=== PATIENT | female | born 1950 | race Caucasian/White ===

== ENCOUNTER 2016-10-30 05:54 | Inpatient (IN) ==
[2016-10-27 08:53] LABS: Hematocrit 30.7 VOL% (35.7-47.0); Hemoglobin 9.5 GM/DL (12.0-16.0); Immature Granulocytes % 0.4 %; Immature Granulocytes Absolute 0.01 #; Lymphocytes # 0.7 10*3/uL (1.4-4.0); Lymphocytes % 28.8 % (21.3-54.2); Mean Corpuscular HGB Conc 30.9 GM/DL (32-36); Mean Corpuscular Hemoglobin 25 PG (27-34); Mean Corpuscular Volume 79.7 FL (87-102); Monocytes # 0.2 10*3/uL (0.11-0.8); Monocytes % 9.7 % (1.7-12.7); Neutrophils # 1.4 10*3/uL (1.4-7.4); Neutrophils % 61.1 % (38.7-73.9); Red Blood Count 3.85 MC/CUMM (3.8-5.5); Red Cell Distribution Width 14.7 % (9.3-17.3); White Blood Count 2.4 T/CUMM (4-12)
[2016-10-27 08:56] LABS: Platelet Count 103 T/CUMM (130-400)
--- NOTE | 2016-10-27 09:02 | EKG Report ---
Stationary ECG Study [facility] Test Date: 10/27/2016 9:01:35 AM Pat Name: STEVIE MESA Department: Room: Gender: F Truck Loader: RUSSEL ALEGRIA 10-30-16 : 1950 Requested by: Anders Alegria Order Number: [id number] Reading MD: ROZ BRICE Intervals [place] Rate: 83 P: 66 MN: 195 QRS: 52 QRSD: 94 T: 71 QT: 350 QTc: 389 Interpretive Statements SINUS RHYTHM NONSPECIFIC T-WAVE ABNORMALITY Electronically Signed On 10-27-16 09:58:05 CDT by ROZ BRICE [email or web address]
--- NOTE | 2016-10-27 09:05 | XRay Report ---
XR chest 2V Date: 10/27/2016 8:20 AM History: Respiratory preoperative evaluation Comparison: None Technique: PA and lateral chest Findings: The heart is normal in size. The lungs are overexpanded with probable chronic scarring. Subsegmental atelectasis at the left lung base. Prior left mastectomy with postoperative findings the left axilla. Prior cholecystectomy. Degenerative changes are noted. Impression: Status post left mastectomy and cholecystectomy. COPD with probable chronic scarring. Subsegmental atelectasis at the left lung base. PROCEDURE INTERPRETED AT [facility] DEPARTMENT OF RADIOLOGY Final Report Signed by: Dr. Marisa Al
[2016-10-27 09:08] LABS: Alanine Aminotransferase 24 U/L (13-56); Albumin 3.3 G/DL (3.4-5.0); Alkaline Phosphatase 311 U/L (45-117); Aspartate Amino Transferase 37 U/L (0-37); Bilirubin,Total < 0.39 MG/DL (0.2-1.0); Blood Urea Nitrogen 19 MG/DL (7-18); Calcium 9.2 MG/DL (8.5-10.1); Glucose 106 MG/DL (74-106); Osmolality,Calculated 280.4 MOS/KG (273-304); Potassium 4.5 MMOL/L (3.5-5.1); Sodium 140 MMOL/L (136-145); Total Protein 6.4 G/DL (6.4-8.3)
[2016-10-27 09:39] LABS: Hypochromasia 1+; Lymphocytes 32 % (20-55); Platelet Estimate Decreased; Segmented Neutrophils 59 % (50-85); Total Cells Counted 100
[2016-10-27 09:40] LABS: Ovalocytes Slight
[2016-10-30] MEDS ORDERED: CLINDAMYCIN INJ 50 ML IV ONE (05:58)
[2016-10-30] MEDS ORDERED: CLINDAMYCIN INJ 600 MG in PREMIX 1 EACH IV ONE (06:00)
[2016-10-30] MEDS ORDERED: MICROFIBRILLAR COLLAGEN POWDER 1 GM CAN TOP ONE ×2 (06:45→08:25)
[2016-10-30] MEDS ORDERED: LACTATED RINGERS 1,000 ML IV SCH ×2 (07:00→07:30)
[2016-10-30] MEDS ORDERED: TISSUE ADHESIVE 1 EACH APPLICATOR TOP ONE (08:47)
[2016-10-30] MEDS ORDERED: MIDAZOLAM 2 MG/2 ML VIAL ONE (09:21)
[2016-10-30] MEDS ORDERED: DESFLURANE 1 UNIT/15 MINUTE INH ONE (09:21)
[2016-10-30] MEDS ORDERED: ACETAMINOPHEN 1,000 MG/100 ML VIAL IV ONE (09:21)
[2016-10-30] MEDS ORDERED: ONDANSETRON 4 MG/2 ML VIAL ONE ×2 (09:34→17:32)
[2016-10-30] MEDS ORDERED: HYDROmorphone 2 MG/1 ML VIAL ONE (09:34)
[2016-10-30] MEDS ORDERED: ONDANSETRON 4 MG/2 ML VIAL IV PRN ×2 (09:39→10:15)
[2016-10-30] MEDS: HYDROmorphone 2 MG/1 ML VIAL IV PRN ×2 (09:40→09:45)
[2016-10-30 09:48] LABS: Apearance,Urine CLEAR (Clear); Bilirubin,Urine Negative (Negative); Blood, Urine Negative (Negative); Glucose,Urine (UA) Negative (Negative); Ketones,Urine Negative (Negative); Nitrite,Urine Negative (Negative); Protein,Urine Negative; RBC,Urine 3 /HPF (0-4); Urine Color Yellow (Yellow); Urine Specific Gravity 1.011 (1.001-1.035); Urine Urobilinogen < 2.0 EU/DL (0.2-1.0); WBC,Urine <1 /HPF (0-6)
[2016-10-30] MEDS ORDERED: HYDROmorphone PCA 30 MG/30 ML SYRINGE IV SCH (10:15)
[2016-10-30] MEDS ORDERED: PROMETHAZINE 25 MG/1 ML VIAL IM PRN (10:15)
[2016-10-30] MEDS: LACTATED RINGERS 1,000 ML IV SCH ×3 (10:40→22:08)
[2016-10-30] MEDS: CARVEDILOL 6.25 MG TABLET PO SCH ×2 (10:46→21:56)
[2016-10-30] MEDS: PANTOPRAZOLE 40 MG VIAL IV SCH (11:00)
[2016-10-30] MEDS: OMEGA 3 ACID ETHYL ESTERS 1 GM CAPSULE PO SCH (11:00)
[2016-10-30] MEDS: CHOLECALCIFEROL 1,000 UNIT TABLET PO SCH (11:00)
[2016-10-30] MEDS: MULTIVITAMIN (PRENATAL) TABLET PO SCH (11:00)
[2016-10-30] MEDS: LEVOTHYROXINE 75 MCG TABLET PO SCH (11:00)
[2016-10-30] MEDS: traMADol 50 MG TABLET PO SCH ×2 (11:00→21:55)
--- NOTE | 2016-10-30 12:15 | History and Physical Update ---
History and Physical Update - History and Physical H&P was reviewed, the patient examined and there: are no changes in the patients condition since last H&P was completed. - Dictation Physical: refer to scanned H&P
--- NOTE | 2016-10-30 12:18 | Operative Note ---
Date of procedure: 10/30/16 Pre-op diagnosis: Symptomatic splenomegaly Post-op diagnosis: same Procedure: Preoperative diagnosis Symptomatic splenomegaly Postoperative diagnosis Same Procedures performed Open splenectomy Findings Large engorged spleen with inflammation was present. There is no abdominal lymphadenopathy or masses palpated. Complete removal of the spleen was obtained and the hilum was stapled with a vascular stapler. Complications None apparent Specimen Spleen to pathology Anesthesia GETA Blood loss 100 mL Surgeon Elle Leon Indications Symptomatic splenomegaly with pancytopenia Description of procedure The patient was taken to the operating room and transferred to the operating table in supine position. Pressure points were padded and SCDs were placed lower extremities. General endotracheal anesthesia was administered. A bump was placed under the left arm pressure points were padded. The abdomen was prepped chlorhexidine and draped sterilely. Preoperative antibiotics were administered and a timeout was performed. A subcostal incision was made on the left side with a scalpel and electrocautery was used to dissected subcutaneous tissues. The abdomen was entered with electrocautery and the spleen was encountered. There was omentum draped over the spleen and adherent to the spleen itself which appeared engorged and chronically inflamed with splenosis. The adhesions were taken down with sharp dissection and electrocautery was used with bipolar electrocautery were needed. The lateral attachments were taken down first in the splenic flexure of the colon was mobilized. The colon was protected and preserved without injury. Lateral attachments were then taken down electrocautery and sharp dissection and the hilum was exposed medially. The hilum was identified where the splenic vein went to the spleen this is divided with a vascular stapler. The vascular stapler was then used to come across the medial attachments of the spleen and along the greater curvature of the stomach and short gastrics were divided with the stapler. The spleen was then completely mobilized out of the left upper quadrant and removed. The remaining attachments the diaphragm were taken down with sharp dissection and electrocautery were needed. There is a small short gastric bleed that was controlled with a [id number] 3-0 silk suture. The remaining wound bed appeared dry and the wound was irrigated copiously with 2 L of saline. Abatene was placed in the wound bed and a MONSE drain was placed through separate stab incision below the incision and sewn with 3-0 nylon suture. The fascial defect was closed in 2 layers with #1 non-looped PDS suture. The skin incision was closed with 2-0 Monocryl José Miguel's closure and a 4-0 Monocryl subcuticular closure with skin glue placed. There was a incorrect count with hemostats so an abdominal x-ray was ordered in the OR and will be reviewed prior to extubating patient transferring to recovery. Postoperative plan Follow-up KUB prior to extubation Advance diet as tolerated and monitor drain output pain control Surgeon / Physician: Anders Almeida Paleology Professor: Patricio Leon Estimated blood loss: minimal (100 mL) Specimens: other (spleen) Condition: stable Disposition: PACU Results - Labs CBC & BMP: 10/27/16 08:28 10/27/16 08:28 Discharge Plan - Discharge Medications No Action Carvedilol [Coreg] 0.5 tablet PO BID Tramadol HCl [Ultram] 50 mg PO BID Esomeprazole Magnesium [Nexium] 1 tablet PO DAILY Sertraline [Zoloft] 100 mg PO BEDTIME Pnv No.95/Ferrous Fum/Folic AC [ Tablet] 2 tablet PO DAILY Levothyroxine Tab [Synthroid Tab] 75 mcg PO DAILY [place]-3/Dha/Epa/Fish Oil [Fish Oil 1,360 mg Softgel] 1 each PO DAILY Cholecalciferol (Vitamin D3) [Vitamin D3] 1,000 unit PO DAILY - Follow Up or Referral - Forms/Instructions
--- NOTE | 2016-10-30 12:25 | Anesthesia Post-Op ---
Anesthesia Post OP - Post Ansesthetic Evaluation Patient seen in post op: Yes Resp: within normal limits CV: within normal limits Mental: within normal limits Temp: within normal limits Pmjg-Cb-[id number]: within normal limits Nausea and Vomiting: within normal limits Pain: within normal limits
--- NOTE | 2016-10-30 14:04 | XRay Report ---
Referring Physician: Anders Almeida Exam: XR KUB Date: October 30, 2016 at 8:48 AM Reason: Incorrect instrument count Comparison: None Findings: There are surgical clips within the right upper quadrant, suggesting cholecystectomy. A surgical drain is also seen at the left upper quadrant. However, no definite radiopaque instrument or needle is identified within the abdomen or pelvis. There is no evidence of bowel obstruction. There may be minimal free air related to recent surgery. The renal shadows are largely obscured. No acute osseous process is seen. Impression: There are surgical clips within the right upper quadrant, suggesting cholecystectomy. A surgical drain is also seen at the left upper quadrant of the abdomen. No radiopaque instrument or needle is identified within the abdomen or pelvis. PROCEDURE INTERPRETED AT [facility] DEPARTMENT OF RADIOLOGY Final Report Signed by: Dr. Mercedes Nj
[2016-10-30] MEDS ORDERED: ALBUMIN 5% 12.5 GM/250 ML VIAL IV ONE (17:32)
[2016-10-30] MEDS ORDERED: ROCURONIUM 100 MG/10 ML VIAL IV ONE (17:32)
[2016-10-30] MEDS ORDERED: PROPOFOL 200 MG/20 ML VIAL IV ONE (17:32)
[2016-10-30] MEDS ORDERED: SUCCINYLCHOLINE 200 MG/10 ML VIAL ONE (17:32)
[2016-10-30] MEDS ORDERED: MINERAL OIL/PETROLATUM OPH OINT 3.5 GM TUBE ONE (17:32)
[2016-10-30] MEDS ORDERED: LIDOCAINE 1% 5 ML VIAL ONE (17:32)
[2016-10-30] MEDS ORDERED: NEOSTIGMINE 10 MG/10 ML VIAL ONE (17:32)
[2016-10-30] MEDS ORDERED: GLYCOPYRROLATE 0.4 MG/2 ML VIAL ONE (17:32)
[2016-10-30] MEDS ORDERED: KETOROLAC 30 MG/1 ML VIAL ONE (17:32)
[2016-10-30 18:39] LABS: Hematocrit 30.9 VOL% (35.7-47.0); Hemoglobin 9.5 GM/DL (12.0-16.0); Immature Granulocytes % 0.4 %; Immature Granulocytes Absolute 0.05 #; Lymphocytes # 0.8 10*3/uL (1.4-4.0); Lymphocytes % 6.5 % (21.3-54.2); Mean Corpuscular HGB Conc 30.7 GM/DL (32-36); Mean Corpuscular Hemoglobin 25 PG (27-34); Mean Corpuscular Volume 82.6 FL (87-102); Mean Platelet Volume 10.9 FL (9.6-12.0); Monocytes # 0.8 10*3/uL (0.11-0.8); Monocytes % 6.9 % (1.7-12.7); Neutrophils % 86.2 % (38.7-73.9); Red Blood Count 3.74 MC/CUMM (3.8-5.5); Red Cell Distribution Width 14.8 % (9.3-17.3)
[2016-10-30 18:41] LABS: White Blood Count 11.6 T/CUMM (4-12)
[2016-10-30 18:42] LABS: Platelet Count 131 T/CUMM (130-400)
[2016-10-30 19:22] LABS: Calcium 8.8 MG/DL (8.5-10.1); Osmolality,Calculated 282.5 MOS/KG (273-304); Potassium 4.8 MMOL/L (3.5-5.1)
--- NOTE | 2016-10-30 20:01 | Event Note ---
General Surgery Progress Note Chief complaint This patient is a 66 year-old woman admitted following splenectomy for symptomatic splenomegaly on 10/30/2016 Interval history No events since OR. Labs stable. Vitals stable. Pain controlled. Physical exam AF, VSS Chest clear Heart regular Abdomen expected tenderness, MONSE drain serosanguinous Labs reviewed, hemoglobin stable Imaging none new Assessment and plan continue pain control diet as tolerated IV fluids repeat lab in AM IS SCDs
[2016-10-30] MEDS: SERTRALINE 100 MG TABLET PO SCH (21:54)
[2016-10-31 03:39] LABS: Hematocrit 22.3 VOL% (35.7-47.0); Hemoglobin 6.8 GM/DL (12.0-16.0); Immature Granulocytes % 0.4 %; Immature Granulocytes Absolute 0.03 #; Lymphocytes # 1.1 10*3/uL (1.4-4.0); Lymphocytes % 15.6 % (21.3-54.2); Mean Corpuscular HGB Conc 30.5 GM/DL (32-36); Mean Corpuscular Hemoglobin 25 PG (27-34); Mean Corpuscular Volume 82.3 FL (87-102); Mean Platelet Volume 11.3 FL (9.6-12.0); Monocytes # 1.2 10*3/uL (0.11-0.8); Monocytes % 17.1 % (1.7-12.7); Neutrophils # 4.8 10*3/uL (1.4-7.4); Neutrophils % 66.9 % (38.7-73.9); Platelet Count 122 T/CUMM (130-400); Red Blood Count 2.71 MC/CUMM (3.8-5.5); Red Cell Distribution Width 14.7 % (9.3-17.3); White Blood Count 7.1 T/CUMM (4-12)
[2016-10-31 04:07] LABS: Calcium 8.1 MG/DL (8.5-10.1); Osmolality,Calculated 277.5 MOS/KG (273-304); Potassium 4.4 MMOL/L (3.5-5.1)
[2016-10-31 04:54] LABS: Band Neutrophils 4 % (0-10); Lymphocytes 23 % (20-55); Metamyelocytes 1 %; Platelet Estimate Normal; Promyelocytes 2 %; Segmented Neutrophils 64 % (50-85); Total Cells Counted 100
[2016-10-31 04:55] LABS: Atypical Lymphocytes Few
[2016-10-31] MEDS: LACTATED RINGERS 1,000 ML IV SCH ×2 (05:23→05:24)
[2016-10-31] MEDS ORDERED: SODIUM CHLORIDE 0.9% 250 ML IV PRN (06:31)
[2016-10-31] MEDS: traMADol 50 MG TABLET PO SCH ×2 (08:24→21:16)
[2016-10-31] MEDS: OMEGA 3 ACID ETHYL ESTERS 1 GM CAPSULE PO SCH (08:24)
[2016-10-31] MEDS: LEVOTHYROXINE 75 MCG TABLET PO SCH (08:24)
[2016-10-31] MEDS: CHOLECALCIFEROL 1,000 UNIT TABLET PO SCH (08:25)
[2016-10-31] MEDS: PANTOPRAZOLE 40 MG VIAL IV SCH (08:25)
[2016-10-31] MEDS: CARVEDILOL 6.25 MG TABLET PO SCH ×2 (08:25→23:15)
[2016-10-31] MEDS: MULTIVITAMIN (PRENATAL) TABLET PO SCH (08:31)
[2016-10-31] MEDS ORDERED: HYDROmorphone 2 MG/1 ML VIAL IV PRN (09:38)
--- NOTE | 2016-10-31 09:41 | Event Note ---
General Surgery Progress Note Chief complaint This patient is a 66 year-old woman admitted following splenectomy for symptomatic splenomegaly on 10/30/2016 Interval history No events overnight. Patient is having a little bit more pain today. Creatinine is normal. Hemoglobin is 6.8 but looks slightly delusional across her CBC. Afebrile with normal vital signs. No tachycardia or hypotension. Edmond catheter is still in place with good urine output. Physical exam AF, VSS Chest clear Heart regular Abdomen expected tenderness, MONSE drain serosanguinous Edmond catheter is clear Labs Reviewed, as above Imaging none new Assessment and plan Discontinue Edmond catheter Discontinue IV fluids As needed Dilaudid Add Toradol Start Lovenox tomorrow Transfuse 2 units packed red blood cells today and repeat hemoglobin tomorrow and after transfusion Ambulate in hallway Incentive spirometry
[2016-10-31] MEDS: KETOROLAC 15 MG/1 ML VIAL IV SCH ×3 (09:59→21:18)
[2016-10-31] MEDS ORDERED: oxyCODONE/ACETAMINOPHEN 5-325 MG TABLET PO PRN (10:12)
[2016-10-31 17:45] LABS: Hemoglobin 10.3 GM/DL (12.0-16.0)
[2016-10-31] MEDS: SERTRALINE 100 MG TABLET PO SCH (21:16)
[2016-10-31] MEDS: CARVEDILOL 3.125 MG TABLET PO SCH (21:36)
[2016-11-01] MEDS: KETOROLAC 15 MG/1 ML VIAL IV SCH ×2 (03:39→09:42)
[2016-11-01 06:16] LABS: Hematocrit 31.4 VOL% (35.7-47.0); Hemoglobin 10.1 GM/DL (12.0-16.0); Immature Granulocytes % 0.9 %; Immature Granulocytes Absolute 0.07 #; Lymphocytes # 1.2 10*3/uL (1.4-4.0); Lymphocytes % 14.6 % (21.3-54.2); Mean Corpuscular HGB Conc 32.2 GM/DL (32-36); Mean Corpuscular Hemoglobin 25 PG (27-34); Mean Corpuscular Volume 78.5 FL (87-102); Mean Platelet Volume 11.4 FL (9.6-12.0); Monocytes # 1.2 10*3/uL (0.11-0.8); Monocytes % 14.4 % (1.7-12.7); Neutrophils # 5.7 10*3/uL (1.4-7.4); Neutrophils % 70.1 % (38.7-73.9); Platelet Count 212 T/CUMM (130-400); Red Cell Distribution Width 15.6 % (9.3-17.3); White Blood Count 8.1 T/CUMM (4-12)
[2016-11-01 06:51] LABS: Calcium 9.2 MG/DL (8.5-10.1); Magnesium 1.8 MG/DL (1.8-2.4); Osmolality,Calculated 274.7 MOS/KG (273-304)
[2016-11-01] MEDS: LEVOTHYROXINE 75 MCG TABLET PO SCH (08:08)
[2016-11-01] MEDS: PANTOPRAZOLE 40 MG VIAL IV SCH (08:08)
[2016-11-01 08:20] VITALS: BP 156/81
--- NOTE | 2016-11-01 08:32 | Discharge Summary ---
Hospital Course - Hospital Course Hospital Course: This patient was admitted following open splenectomy for symptomatic splenomegaly. She did well postoperatively but her hemoglobin dropped to 6.8 postop day 1 and she was transfused and responded appropriately. This was not to be thought as blood loss anemia but rather loss of the blood volume with removal of the spleen which at least equated to 1-2 units in my opinion. The patient was hemodynamically normal during this time and she was eating well with good pain control the following day and she was discharged home. Specialty Discharge - Follow Up or Referrals Follow up with: Anders Almeida MD [Physician] - Discharge Plan - Discharge Data Disposition: Disch To Home/Self Care Condition at Discharge: Stable Discharge Diet: advance to your usual diet Activity: no lifting Hygiene: may shower Weight Bearing at Discharge: weight bear as tolerated Driving: not until seen by doctor Contact your physician if you experience:: fever over 101, Difficulty voiding, Redness or swelling, Nausea/Vomiting, Shortness of breath, Bleeding, pain uncontrolled by pain medications Wound / Dressing Care Instructions: It is okay to shower. Do not scrub the incision aggressively or submerge it under water. - Discharge Medications New Oxycodone HCl/Acetaminophen [Percocet 7.5-325 mg Tablet] 1 capsule PO Q6H PRN #45 tablet PRN Reason: Pain Continue Tramadol HCl [Ultram] 50 mg PO BID Esomeprazole Magnesium [Nexium] 40 mg PO DAILY Anastrozole [Arimidex] 1 mg PO DAILY Carvedilol 0.5 tablet PO BID Sertraline HCl 50 mg PO QAM Sertraline [Zoloft] 100 mg PO BEDTIME Levothyroxine Tab [Synthroid Tab] 75 mcg PO DAILY [place]-3/Dha/Epa/Fish Oil [Fish Oil 1,360 mg Softgel] 1 each PO DAILY Cholecalciferol (Vitamin D3) [Vitamin D3] 1,000 unit PO DAILY Aspirin [Aspirin EC] 81 mg PO DAILY Multivit,Calc,Mins/Iron/Folic [Women's Daily Formula Caplet] 2 each PO DAILY Discontinued Oxycodone HCl/Acetaminophen [Oxycodone-Acetaminophen 5-325] 1 - 2 tablet PO Q6HR - Follow Up or Referral Follow Up: Anders Almeida MD [Physician] - 11/10/16 - Forms/Instructions Instructions: Open Splenectomy (DC) Exam - Constitutional Vitals: Period Temp Pulse Resp BP Sys/Cross Pulse Ox Last 24 Hr 97.4 F-98.6 F 69-81 16-20 110-156/59-81 94-100 General appearance: no acute distress, over weight - Head Head exam: Present: normal inspection, normocephalic - Eye Eye exam: Present: EOMI Pupils: Present: FANNY - ENT ENT exam: Present: normal exam - Neck Neck exam: Present: normal inspection - Respiratory Respiratory exam: Present: clear to auscultation bilaterally. Absent: accessory muscle use, chest wall tenderness - Cardiovascular Cardiovascular exam: Present: regular rate and rhythm. Absent: systolic murmur , tachycardia - GI/Abdominal GI/Abdominal exam: Present: tenderness (Expected postoperative tenderness), soft , other (Incision is healing well with no infection. The MONSE drain is serous and minimal output). Absent: rebound - Extremities Exam Extremities exam: Present: normal inspection, normal capillary refill - Back Exam Back exam: Present: normal inspection - Neurological Exam Neurological exam: Present: alert, oriented X3 - Psychiatric Psychiatric exam: Present: normal affect, normal mood - Skin Skin exam: Present: normal color, warm Discharge Results Labs on day of discharge: Labs from last 24 hours 11/01/16 11/01/16 10/31/16 05:30 05:30 17:25 WBC 8.1 RBC 4.00 D Hgb 10.1 L 10.3 L D Hct 31.4 L 32.0 L MCV 78.5 L MCH 25 L MCHC 32.2 RDW 15.6 Plt Count 212 D MPV 11.4 Neut % (Auto) 70.1 Lymph % (Auto) 14.6 L Ford % (Auto) 14.4 H Eos % (Auto) 0.0 Baso % (Auto) 0.0 Neut # (Auto) 5.7 Lymph # (Auto) 1.2 L [place] # (Auto) 1.2 H Eos # (Auto) 0.0 Baso # (Auto) 0.0 Immature Gran % 0.9 Nucleated RBC % 0.0 Immature Gran # 0.07 Nucleated RBCs # 0.00 Sodium 138 Potassium 4.0 Chloride 103 Carbon Dioxide 24 Anion Gap 15.0 BUN 12 Creatinine 0.90 GFR Calculation 72 BUN/Creatinine Ratio 13.00 Glucose 98 Calculated Osmolality 274.7 Calcium 9.2 Magnesium 1.8 Blood Type Antibody Screen Crossmatch Blood Bank Comment 10/31/16 03:15 WBC RBC Hgb Hct MCV MCH MCHC RDW Plt Count MPV Neut % (Auto) Lymph % (Auto) Ford % (Auto) Eos % (Auto) Baso % (Auto) Neut # (Auto) Lymph # (Auto) [place] # (Auto) Eos # (Auto) Baso # (Auto) Immature Gran % Nucleated RBC % Immature Gran # Nucleated RBCs # Sodium Potassium Chloride Carbon Dioxide Anion Gap BUN Creatinine GFR Calculation BUN/Creatinine Ratio Glucose Calculated Osmolality Calcium Magnesium Blood Type Cancelled Antibody Screen Cancelled Crossmatch See Detail Blood Bank Comment Cancelled DS: Provider Date of admission: 10/30/16 05:54 Primary care physician: Melody Rodrigez Attending physician on admission: Anders Almeida MD Discharging clinician: Anders Almeida MD Expected date of discharge: 11/01/16
[2016-11-01] MEDS ORDERED: PANTOPRAZOLE 40 MG TABLET PO SCH (09:00)
[2016-11-01] MEDS ORDERED: ENOXAPARIN 40 MG/0.4 ML SYRINGE SUBCUT SCH (09:00)
[2016-11-01] MEDS ORDERED: MULTIVITAMIN (CENTRUM) TABLET PO SCH (09:00)
[2016-11-01] MEDS ORDERED: ASPIRIN EC 81 MG TABLET PO SCH (09:00)
[2016-11-01] MEDS ORDERED: SERTRALINE 50 MG TABLET PO SCH (09:00)
[2016-11-01] MEDS ORDERED: ANASTROZOLE 1 MG TABLET PO SCH (09:00)
[2016-11-01] MEDS: traMADol 50 MG TABLET PO SCH (09:32)
[2016-11-01] MEDS: CHOLECALCIFEROL 1,000 UNIT TABLET PO SCH (09:32)
[2016-11-01] MEDS: CARVEDILOL 3.125 MG TABLET PO SCH (09:32)
[2016-11-01] MEDS: CARVEDILOL 6.25 MG TABLET PO SCH (09:33)
[2016-11-01] MEDS: OMEGA 3 ACID ETHYL ESTERS 1 GM CAPSULE PO SCH (09:33)
--- NOTE | 2016-11-20 17:16 | Pathology Report from [facility] ---
[facility] [place] # : [id number] PATIENT NAME : Stevie Mesa ORDERING DR : Anders Almeida MD CLINICAL HX: Splenomegaly POST-OP DX: Same SPECIMEN INFO: Spleen GROSS DESCRIPTION: Received in formalin labeled STEVIE MESA consists of a 1684 gm spleen measuring 26.1 x 15 x 7.5 cm. The serosa is markedly erythematous with fibrinous adhesions and mottled diffuse fibrinous plaque-type areas present. The cut surfaces are beefy red with diffuse marked nodularity identified. Lamp Shades Supervisor sections are submitted in cassettes A-F. 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 Flow cytometric evaluation of the peripheral blood and/or cytogenetic studies may be of value. Additionally, there are scattered aggregates of relatively large cells with plasmacytic differentiation that have a high Ki-67 proliferation index. The findings are unusual, but are not diagnostic of large cell transformation. Close clinical follow up is recommended. This case was reviewed at the Division of Hematologic Pathology quality assurance lab technician conference with Dr. Vasquez in attendance. (See microscopic description) COLLECTED DATE: 10/30/2016 [facility] [place] DATE: 11/20/2016 ELECTRONICALLY SIGNED BY: Maxine Dodd III, M.D. 11/20/2016 - 10:54:31 [facility]
== END 2016-11-01 10:29 | disposition home or self-care (01) | DRG 800 ==
LOC: N.SDSINP 05:54 → N.3E 10:08
PROVIDERS: ADMIT Surgery; ATTEND Surgery

== ENCOUNTER 2020-04-28 08:41 | Inpatient (IN) ==
[2020-04-28] MEDS ORDERED: SODIUM CHLORIDE 0.9% 500 ML IV STA (09:50)
[2020-04-28 10:34] LABS: Basophils % 0.1 % (0.0-0.8); Hematocrit 39.2 VOL% (35.7-47.0); Hemoglobin 13.3 GM/DL (12.0-16.0); Immature Granulocytes % 0.4 %; Immature Granulocytes Absolute 0.07 #; Lymphocytes # 1.2 10*3/uL (1.4-4.0); Lymphocytes % 6.9 % (21.3-54.2); Mean Corpuscular HGB Conc 33.9 GM/DL (32-36); Mean Corpuscular Volume 84.5 FL (87-102); Mean Platelet Volume 11.9 FL (9.6-12.0); Monocytes % 10.8 % (1.7-12.7); Neutrophils % 81.8 % (38.7-73.9); Platelet Count 393 T/CUMM (130-400); Red Blood Count 4.64 MC/CUMM (3.8-5.5); Red Cell Distribution Width 15.6 % (9.3-17.3); White Blood Count 17.2 T/CUMM (4-12)
[2020-04-28 10:54] LABS: Albumin 3.2 G/DL (3.4-5.0); Bilirubin,Total 0.8 MG/DL (0.2-1.0); Calcium 9.6 MG/DL (8.5-10.1); Osmolality,Calculated 273.2 MOS/KG (273-304); Potassium 4.3 MMOL/L (3.5-5.1); Total Protein 6.7 G/DL (6.4-8.3)
[2020-04-28 11:01] LABS: Bilirubin,Urine Negative (Negative); Blood, Urine Negative (Negative); Glucose,Urine (UA) Negative (Negative); Ketones,Urine Negative (Negative); Nitrite,Urine Negative (Negative); Protein,Urine 100 MG/DL; RBC,Urine 18 /HPF (0-4); Squamous Epithelial Cell,Urine Occasional /HPF (0-10); Urine Appearance CLOUDY (Clear); Urine Color Yellow (Yellow); Urine Specific Gravity 1.014 (1.001-1.035); Urine Urobilinogen < 2.0 EU/DL (0.2-1.0); WBC,Urine 251 /HPF (0-6)
[2020-04-28] MEDS ORDERED: LEVOFLOXACIN INJ 500 MG in PREMIX 1 EACH IV STA (11:12)
[2020-04-28 11:15] LABS: Anisocytosis 1+; Band Neutrophils 16 % (0-10); Lymphocytes 9 % (20-55); Platelet Estimate Normal; Poikilocytosis 1+; Segmented Neutrophils 66 % (50-85); Tear Drop Cells Few; Total Cells Counted 100
[2020-04-28 11:16] LABS: Burr Cells Few
[2020-04-28] MEDS ORDERED: DEXTROSE 50% 25 GM/50 ML VIAL IV PRN (11:21)
[2020-04-28] MEDS ORDERED: GLUCAGON 1 MG VIAL IM PRN (11:21)
[2020-04-28] MEDS ORDERED: ONDANSETRON 4 MG/2 ML VIAL IV PRN (11:21)
[2020-04-28 11:53] LABS: Ferritin 161.6 ng/ml (8-252)
[2020-04-28] MEDS ORDERED: FUROSEMIDE 40 MG/4 ML VIAL IV ONE (15:13)
[2020-04-28] MEDS ORDERED: predniSONE 5 MG TABLET PO PRN (15:17)
[2020-04-28] MEDS: carvediloL 12.5 MG TABLET PO SCH (20:25)
[2020-04-28] MEDS: [UNRECOGNIZED DRUG - OTHER] BOTH EYES SCH (20:26)
[2020-04-28] MEDS: CARBOXYMETHYLCELLULOSE SODIUM BOTH EYES SCH (20:26)
[2020-04-28] MEDS: FLUTICASONE 50 MCG NASAL SPRAY 16 GM BOTTLE BOTH NARES SCH (20:26)
[2020-04-28] MEDS: traMADol 50 MG TABLET PO SCH (20:30)
[2020-04-28] MEDS ORDERED: ASPIRIN EC 81 MG TABLET PO SCH (21:00)
[2020-04-28] MEDS ORDERED: SERTRALINE 50 MG TABLET PO SCH (21:00)
[2020-04-28] MEDS ORDERED: ANASTROZOLE 1 MG TABLET PO SCH (21:00)
[2020-04-28] MEDS ORDERED: LEFLUNOMIDE 10 MG TABLET PO SCH (21:00)
[2020-04-29 05:56] LABS: Basophils % 0.1 % (0.0-0.8); Hematocrit 35.7 VOL% (35.7-47.0); Immature Granulocytes % 0.6 %; Immature Granulocytes Absolute 0.08 #; Lymphocytes # 1.3 10*3/uL (1.4-4.0); Lymphocytes % 8.7 % (21.3-54.2); Mean Corpuscular HGB Conc 33.6 GM/DL (32-36); Mean Corpuscular Volume 85.8 FL (87-102); Mean Platelet Volume 12.7 FL (9.6-12.0); Monocytes % 9.5 % (1.7-12.7); Neutrophils % 81.1 % (38.7-73.9); Platelet Count 323 T/CUMM (130-400); Red Blood Count 4.16 MC/CUMM (3.8-5.5); Red Cell Distribution Width 15.6 % (9.3-17.3); White Blood Count 14.4 T/CUMM (4-12)
[2020-04-29 06:08] LABS: Albumin 2.6 G/DL (3.4-5.0); Bilirubin,Total 0.7 MG/DL (0.2-1.0); Calcium 9.1 MG/DL (8.5-10.1); Osmolality,Calculated 273.4 MOS/KG (273-304); Potassium 3.6 MMOL/L (3.5-5.1); Total Protein 6.5 G/DL (6.4-8.3)
[2020-04-29 06:14] LABS: Risk Ratio 2.01; Thyroid Stimulating Hormone 2.81 uIU/ml (0.358-3.74); VLDL CHOLESTEROL 8.6 MG/DL
[2020-04-29 06:58] LABS: Hepatitis B Core IgM Quant 0.06 Index; Hepatitis B Surface Ag Quant < 0.10 Index; Hepatitis B Surface Ag Result Negative (Negative); Hepatitis C Virus Ab Quant < 0.02 Index; Hepatitis C Virus Ab Result Negative (Negative)
[2020-04-29] MEDS ORDERED: LEVOTHYROXINE 88 MCG TABLET PO SCH (07:00)
[2020-04-29] MEDS ORDERED: PANTOPRAZOLE 40 MG TABLET PO SCH (07:00)
[2020-04-29] MEDS ORDERED: MAGNESIUM SULF RIDER 4 GM in PREMIX 1 EACH IV ONE (07:04)
[2020-04-29] MEDS: carvediloL 12.5 MG TABLET PO SCH (08:59)
[2020-04-29] MEDS: FLUTICASONE 50 MCG NASAL SPRAY 16 GM BOTTLE BOTH NARES SCH (08:59)
[2020-04-29] MEDS: traMADol 50 MG TABLET PO SCH (08:59)
[2020-04-29] MEDS ORDERED: POTASSIUM CHLORIDE 20 MEQ TABLET PO SCH (09:00)
[2020-04-29] MEDS ORDERED: ARIPiprazole 5 MG TABLET PO SCH (09:00)
[2020-04-29] MEDS ORDERED: OMEGA 3 ACID ETHYL ESTERS 1 GM CAPSULE PO SCH (09:00)
[2020-04-29] MEDS ORDERED: LEVOFLOXACIN INJ 500 MG in PREMIX 1 EACH IV SCH (09:00)
[2020-04-29] MEDS ORDERED: MULTIVITAMIN (CENTRUM) TABLET PO SCH (09:00)
[2020-04-29 11:59] VITALS: BP 148/72
[2020-04-29] MEDS: [UNRECOGNIZED DRUG - OTHER] BOTH EYES SCH (12:44)
[2020-04-29] MEDS: CARBOXYMETHYLCELLULOSE SODIUM BOTH EYES SCH (12:44)
== END 2020-04-29 13:43 | disposition home health service (06) | DRG 689 ==
LOC: N.ED 08:41 → N.EDINP 11:20 → N.5E 12:53
PROVIDERS: ADMIT Internal Medicine; ATTEND Internal Medicine